=== PATIENT | female | born 1950 | race Caucasian/White ===

== ENCOUNTER → 2018-12-19 | Outpatient (REF) | payer MEDICARE | LOC: M SFHCPLAZ 10:10 | PROVIDERS: ATTEND Dermatology | DX: L30.8 Other specified dermatitis (principal) ==

== ENCOUNTER → 2019-03-18 | Outpatient (REF) | payer MEDICARE | LOC: M SFHCPLAZ 17:09 | PROVIDERS: ATTEND Dermatology | DX: L72.11 Pilar cyst (principal) ==

== ENCOUNTER → 2022-09-04 | Outpatient (CLI) | payer MEDICARE ==
[~2022-09-04] MED LIST: ISOVUE-300 61% 50ML VIAL As Ordered ONE; LIDOCAINE 1% MDV 20ML VIAL As Ordered ONE; TRIAMCINOLONE ACETONIDE SUSP 40MG/ML 1ML VIAL As Ordered ONE
== END ==
LOC: M RAD 14:20
PROVIDERS: ATTEND Orthopaedic Surgery
DX: M16.11 Unilateral primary osteoarthritis, right hip (principal)
CPT/HCPCS: 20610; 76000; J3301; Q9967

== ENCOUNTER → 2024-06-05 | Outpatient (CLI) | payer MEDICARE | LOC: M RAD 16:46 | PROVIDERS: ATTEND Orthopaedic Surgery Hand Surgery | DX: M12.811 Other specific arthropathies, not elsewhere classified, right shoulder (principal); M25.511 Pain in right shoulder ==

== ENCOUNTER 2024-07-09 06:02 | Day surgery (SDC) | payer MEDICARE ==
[~2024-07-09] VITALS: Ht 167.6 cm; Wt 79.0 kg
[~2024-07-09 06:02] MED LIST changes: +B-12100010 PO; +CHOL50002 PO; +ESOM40CA35 PO; +FERR325T81 PO; -ISOVUE-300 61% 50ML VIAL As Ordered ONE; -LIDOCAINE 1% MDV 20ML VIAL As Ordered ONE; +MIRA3350 PO; +OCUVTAB4 PO; +SERT50TA29 PO; +SIMV10TA21 PO; +SIMV20TA22 PO; +TRAZ-252 PO; -TRIAMCINOLONE ACETONIDE SUSP 40MG/ML 1ML VIAL As Ordered ONE; +ULTR5TAB PO
[2024-07-09] MEDS ORDERED: LR 1,000 ML IV SCH ×2 (06:25→10:50)
[2024-07-09] MEDS ORDERED: dexmedeTOMIDine (4MCG/ML)200MCG/50ML BTL (PRECEDEX) As Ordered ONE (06:30)
[2024-07-09] MEDS ORDERED: ACETAMINOPHEN 1000MG 100ML IV BAG As Ordered ONE (06:30)
[2024-07-09] MEDS ORDERED: propofoL 200 MG/20 ML VIAL As Ordered ONE (06:31)
[2024-07-09] MEDS ORDERED: ROCURONIUM BROMIDE 50MG/5ML VIAL As Ordered ONE (06:32)
[2024-07-09] MEDS ORDERED: SUGAMMADEX SODIUM 500 MG/5 ML VIAL (BRIDION) As Ordered ONE (06:32)
[2024-07-09] MEDS ORDERED: LIDOCAINE 2% 100MG/5ML SDV (FOR ANES.) As Ordered ONE (06:32)
[2024-07-09] MEDS ORDERED: ONDANSETRON 4MG 2ML VIAL As Ordered ONE (06:32)
[2024-07-09] MEDS ORDERED: VASOPRESSIN INJ 20UNITS/ML 1ML VIAL As Ordered ONE (06:33)
[2024-07-09] MEDS ORDERED: fentaNYL 100 MCG/2 ML INJECTION As Ordered ONE (06:44)
[2024-07-09] MEDS ORDERED: dexAMETHasone 10MG/1ML VIAL PRES.FREE PN ONE ×2 (07:10→07:20)
[2024-07-09] MEDS ORDERED: ROPIvacaine 0.5% 30ML VIAL PN ONE ×2 (07:10→07:20)
[2024-07-09] MEDS ORDERED: LIDOCAINE 1% SDV 5ML VIAL PN ONE ×2 (07:10→07:20)
[2024-07-09] MEDS ORDERED: MIDAZOLAM INJ 2MG/2ML VIAL IV PRN (07:20)
[2024-07-09] MEDS ORDERED: EPINEPHrine INJ 1 MG/ML 1ML AMP PN ONE (07:20)
[2024-07-09] MEDS ORDERED: fentaNYL 100 MCG/2 ML INJECTION IV PRN ×2 (07:20→10:50)
[2024-07-09] MEDS: fentaNYL 100 MCG/2 ML INJECTION IV PRN (07:42)
[2024-07-09] MEDS: MIDAZOLAM INJ 2MG/2ML VIAL IV PRN (07:42)
[2024-07-09] MEDS ORDERED: ceFAZolin SOD 2 GM in IV 1 EA IV ONE ×2 (08:05→08:10)
[2024-07-09] MEDS: ceFAZolin 2 GM/D5W 50 ML IV BAG As Ordered ONE (08:20)
[2024-07-09] MEDS: LIDOCAINE W/EPINEPHRINE 1% 20ML VIAL As Ordered ONE (08:51)
[2024-07-09] MEDS ORDERED: GLYCOPYRROLATE INJ 0.2 MG/ML 2 ML VIAL As Ordered ONE (09:46)
[2024-07-09] MEDS: VANCOMYCIN 500MG/10ML VIAL As Ordered ONE (10:34)
[2024-07-09] MEDS: TRANEXAMIC ACID 100 MG/ML 10ML VIAL As Ordered ONE (10:34)
[2024-07-09] MEDS ORDERED: ONDANSETRON 4MG 2ML VIAL IV PRN (10:50)
[2024-07-09] MEDS ORDERED: HYDROMORPHONE HCL 0.5 MG/ 0.5 ML SYRINGE IV PRN (10:50)
[2024-07-09] MEDS ORDERED: oxyCODONE 5MG TAB PO PRN (10:50)
[2024-07-09] MEDS ORDERED: OXYC1TAB23 PO ×2 (13:06→13:35)
[2024-07-09 13:49] VITALS: BP 119/69; TEMP 97.5; O2SAT 97
== END 2024-07-09 13:51 | disposition home or self-care (01) ==
LOC: M SDC 06:02
PROVIDERS: ATTEND Orthopaedic Surgery Hand Surgery
DX: M19.011 Primary osteoarthritis, right shoulder (principal); Z88.0 Allergy status to penicillin; Z79.899 Other long term (current) drug therapy
CPT/HCPCS: 23472; 64415; 73020; 88300; C1713; C1776; J0131; J0690; J1100; J1596; J2250; J2405; J2598; J3010; J3370